=== PATIENT | male | born 1935 | race Caucasian/White ===

== ENCOUNTER 2018-04-16 21:22 | Inpatient (IN) | payer OTHER ==
[~2018-04-16] VITALS: Ht 175.3 cm; Wt 67.6 kg
--- NOTE | ~2018-04-16 | HC ---
[facility] [place] [address] CONSULTATION Name: JASON CASTILLO Room #: 419-P [facility] IN M.R.#: [id number] Admission: 04/17/18 Attend Phys: Roselia Ortiz MD Discharge: Date of : 39 Report #: [id number] THIS REPORT FOR: //name// CC: Roselia Ortiz Sagar Gage DATE OF SERVICE: 04/18/2018 ATTENDING PHYSICIAN: Jostin Hayward MD. CONSULTATION REQUESTED BY: Mykel Dominique MD. REASON FOR CONSULTATION: Fever. HISTORY OF PRESENT ILLNESS: The patient is an 82-year-old white man who reports he was brought to the Emergency Room with history of fever as high as 104 and some burning in the chest and the fever appears to have getting better now, but he is still having some burning sensation on upper airways. He relates having had some shortness of breath as well, particularly worse with physical activity. The patient's workup has included CT scan of the chest that revealed some chronic changes, but no acute infiltrates. All in all, the patient appears to have improved some wondering he needs to stay here in the hospital. PAST MEDICAL HISTORY: Cataract surgeries, both eyes. Coronary artery bypass grafting in 1979 at [facility]. Cigarette smoking and COPD. SOCIAL HISTORY: Retired service architect. . Living with in his home. Two sons and 2 grandchildren. No longer smokes cigarettes. DRUG ALLERGIES: MORPHINE, HYDROCODONE. MEDICATIONS: The patient is on vancomycin 500 mg daily, levofloxacin 750 mg IV every 48 hours, loratadine 10 mg daily, cyanocobalamin 1000 mcg p.o. daily, pantoprazole 40 mg daily, niacin sustained release 500 mg p.o. daily, folic acid 800 mcg daily, fluticasone propionate 1 spray each nostril daily, duloxetine 60 mg daily, aspirin 81 mg daily, acidophilus and bulgaricus 1 package daily, atorvastatin 40 mg daily, quetiapine fumarate 25 mg at bedtime, alprazolam 1 mg at bedtime, enoxaparin 40 mg subQ at bedtime, metoprolol 25 mg p.o. b.i.d., albuterol inhalation treatments 3 times daily, p.r.n. acetaminophen, guaifenesin, vancomycin 500 IV every 12 hours. REVIEW OF SYSTEMS: As above. PHYSICAL EXAMINATION: GENERAL: This is a well-developed man. VITAL SIGNS: Temperature 100.3 at 22:50 on 04/16/2018, [place] [address] CONSULTATION Name: JASON CASTILLO Room #: 419-P [facility] IN M.R.#: [id number] Admission: 04/17/18 Attend Phys: Roselia Ortiz MD Discharge: Date of : 39 Report #: [id number] Temperature today is 97.5, pulse 79, respirations 20, BP 183/67. HEENMT: Head normocephalic, atraumatic. Status post bilateral cataract surgery, lens implants. Pupils reactive. Mouth: Dry mucous membrane. NECK: Supple. No thyromegaly or lymphadenopathy are negative. LUNGS: Crackles right lung base posteriorly. HEART: S1, S2. No gallop or murmur. ABDOMEN: Soft, no masses or megaly. GENITALIA AND RECTAL: Deferred. EXTREMITIES: No clubbing, cyanosis. NEUROLOGIC: Grossly within normal limits. LABORATORY DATA: On admission, BUN 22, creatinine 1.5 and glucose 162. Repeat blood test today revealed a BUN down to 15, creatinine 1.4, albumin decreased 2.9 g/dL on admission, white blood cell count 15,400, repeated today is 8800, hemoglobin 11.2 g/dL, platelets 212,000. The white blood cell count differential on the date of admission 91% neutrophils. Cultures negative so far. RADIOLOGY EVALUATION: CT scan of the chest has revealed chronic lung changes, no acute process, coronary artery calcifications. Previous sternotomy. ASSESSMENT: 1. Febrile illness with respiratory symptoms, entertain possibility of right lower lobe pneumonia. 2. Possible viral infection. 3. Azotemia - dehydration, resolved. 4. Chronic obstructive pulmonary disease. 5. Mild anemia. 6. MORPHINE, HYDROCODONE ALLERGY INTOLERANCE. SUGGESTIONS AND RECOMMENDATIONS: The patient appears to have clinically improved. We will continue current regimen of Levaquin 750 mg IV, we will make changes to daily. We will discontinue IV vancomycin. We will repeat chest x-ray, order a CRP and ESR. The patient, I suppose, could be considered for discharge in [address] Dominique, thank you for requesting my suggestions. <ELECTRONICALLY SIGNED> By: Nicola Connelly MD 04/19/18 [id number] Nicola Connelly MD /nt
[2018-04-16 21:39] VITALS: BP 130/52
[2018-04-16 22:02] LABS: BASOPHILS 0.4 % (0.0-2.0); EOSINOPHILS 0.4 % (0.0-3.0); HEMATOCRIT 33.4 % (42.0-52.0); HEMOGLOBIN 11.4 gm/dL (14.0-18.0); LYMPHOCYTES 3.2 % (24.0-44.0); MCH 31.8 pg (26.0-34.0); MCV 93.7 fL (80.0-100.0); MONOCYTES 4.5 % (1.0-8.0); PLATELET COUNT 251 thou/uL (150-400); POLYS 91.5 % (36.0-66.0); RBC 3.57 mil/uL (4.50-6.00); RDW 13.5 % (10.5-14.5); WBC 15.4 thou/uL (4.0-11.0)
[2018-04-16 22:10] LABS: CALCIUM 8.7 mg/dL (8.5-10.1); CREATININE 1.5 mg/dL (0.7-1.3); POTASSIUM 3.9 mmol/L (3.5-5.1)
[2018-04-16 23:00] LABS: URINE BILIRUBIN NEGATIVE (Negative); URINE BLOOD NEGATIVE (Negative); URINE CLARITY CLEAR; URINE COLOR YELLOW; URINE GLUCOSE-RANDOM* NEGATIVE (Negative); URINE KETONES NEGATIVE (Negative); URINE LEUKOCYTES-REFLEX NEGATIVE (Negative); URINE NITRITE-REFLEX NEGATIVE (Negative); URINE PROTEIN (DIPSTICK) TRACE (Negative); URINE UROBILINOGEN 0.2 E.U./dl (0.2-1.0)
[2018-04-17 01:55] VITALS: BP 146/44
[2018-04-17 02:24] VITALS: BP 142/47
[2018-04-17 05:57] LABS: HEMATOCRIT 34.7 % (42.0-52.0); HEMOGLOBIN 11.6 gm/dL (14.0-18.0); MCH 31.8 pg (26.0-34.0); MCHC 33.6 g/dL (28.0-37.0); MCV 94.7 fL (80.0-100.0); RBC 3.66 mil/uL (4.50-6.00); RDW 13.9 % (10.5-14.5); WBC 14.1 thou/uL (4.0-11.0)
[2018-04-17 06:06] LABS: CALCIUM 8.6 mg/dL (8.5-10.1); CREATININE 1.4 mg/dL (0.7-1.3); POTASSIUM 4.1 mmol/L (3.5-5.1)
[2018-04-17 08:33] VITALS: BP 120/72
[2018-04-17] MEDS ORDERED: BACID CAPLET1 EACH (12:50)
[2018-04-17] MEDS ORDERED: XANAX1 MG PO (12:51)
[2018-04-17] MEDS ORDERED: NORVASC5 MG PO (12:52)
[2018-04-17] MEDS ORDERED: CYMBALTA60 MG PO (12:53)
[2018-04-17] MEDS ORDERED: ASPIR 8181 MG PO (12:53)
[2018-04-17] MEDS ORDERED: ALLER-EASE180 MG PO (12:54)
[2018-04-17] MEDS ORDERED: FLONASE 0.05%50 MCG NASAL (12:56)
[2018-04-17] MEDS ORDERED: FOLIC ACID1 MG (12:57)
[2018-04-17] MEDS ORDERED: LOPRESSOR25 PO (12:59)
[2018-04-17] MEDS ORDERED: NIACIN 500 MG500 M1 PO (12:59)
[2018-04-17] MEDS ORDERED: OMEPRAZOLE20 MG PO (13:00)
[2018-04-17] MEDS ORDERED: SEROQUEL 25 MG25 M1 (13:01)
[2018-04-17] MEDS ORDERED: CRESTOR20 MG PO (13:02)
[2018-04-17] MEDS ORDERED: SPIRIVA INH (13:03)
[2018-04-17] MEDS ORDERED: VITAMIN B-12500 MCG PO (13:04)
[2018-04-17] MEDS ORDERED: MAPAP500 MG PO (13:06)
[2018-04-17] MEDS ORDERED: VENTOLIN HFA INH8 GM (13:11)
[2018-04-17 17:23] VITALS: BP 158/95
[2018-04-17 20:00] VITALS: BP 160/56
[2018-04-18 02:10] VITALS: BP 155/55
[2018-04-18 05:08] VITALS: BP 183/67
[2018-04-18 05:14] LABS: HEMATOCRIT 33.9 % (42.0-52.0); HEMOGLOBIN 11.2 gm/dL (14.0-18.0); MCH 31.6 pg (26.0-34.0); MCV 95.7 fL (80.0-100.0); RBC 3.54 mil/uL (4.50-6.00); RDW 13.9 % (10.5-14.5); WBC 8.8 thou/uL (4.0-11.0)
[2018-04-18 05:27] LABS: ALBUMIN 2.9 g/dL (3.4-5.0); CALCIUM 8.6 mg/dL (8.5-10.1); CREATININE 1.4 mg/dL (0.7-1.3); POTASSIUM 4.2 mmol/L (3.5-5.1); TOTAL BILIRUBIN 0.4 mg/dL (<0.1-1.0); TOTAL PROTEIN 6.5 g/dL (6.4-8.2)
[2018-04-18 19:39] VITALS: BP 122/76
[2018-04-19 02:01] LABS: ABSOLUTE NEUTROPHILS 8.2 thou/uL (1.4-8.2); BASOPHILS 0.3 % (0.0-2.0); EOSINOPHILS 3.7 % (0.0-3.0); HEMATOCRIT 31.8 % (42.0-52.0); HEMOGLOBIN 10.8 gm/dL (14.0-18.0); LYMPHOCYTES 10.9 % (24.0-44.0); MCH 32.3 pg (26.0-34.0); MCV 95.1 fL (80.0-100.0); MONOCYTES 9.7 % (1.0-8.0); PLATELET COUNT 205 thou/uL (150-400); POLYS 75.4 % (36.0-66.0); RBC 3.34 mil/uL (4.50-6.00); WBC 10.9 thou/uL (4.0-11.0)
[2018-04-19 02:09] LABS: CALCIUM 8.1 mg/dL (8.5-10.1); CREATININE 1.3 mg/dL (0.7-1.3); POTASSIUM 3.6 mmol/L (3.5-5.1)
[2018-04-19 04:03] VITALS: BP 162/61
[2018-04-19 05:12] LABS: HEMATOCRIT 30.8 % (42.0-52.0); HEMOGLOBIN 10.5 gm/dL (14.0-18.0); MCH 32.2 pg (26.0-34.0); MCHC 34.1 g/dL (28.0-37.0); MCV 94.4 fL (80.0-100.0); PLATELET COUNT 191 thou/uL (150-400); RBC 3.26 mil/uL (4.50-6.00); RDW 13.7 % (10.5-14.5); WBC 9.7 thou/uL (4.0-11.0)
[2018-04-19 07:42] LABS: ABSOLUTE NEUTROPHILS 7.3 thou/uL (1.4-8.2); ANISOCYTOSIS SLIGHT
[2018-04-19 08:33] VITALS: BP 174/59
[2018-04-19] MEDS ORDERED: LEVAQUIN 750 M750 MG PO (16:41)
[2018-04-19 16:48] VITALS: BP 174/59
== END 2018-04-19 17:22 | disposition home health service (06) | DRG 871 ==
LOC: ER 21:22 → EROBS 04-17 00:13 → 4E 04-17 00:13 → ENTRNSPT 04-19 17:14 → 4E 04-19 17:22
PROVIDERS: Emergency Medicine; Hospitalist; Nurse Practitioner Family
DX: A41.9 Sepsis, unspecified organism (principal); J18.9 Pneumonia, unspecified organism; J96.01 Acute respiratory failure with hypoxia; N17.9 Acute kidney failure, unspecified; E66.2 Morbid (severe) obesity with alveolar hypoventilation; Y95 Nosocomial condition; J44.9 Chronic obstructive pulmonary disease, unspecified; E86.0 Dehydration; D64.9 Anemia, unspecified; F03.90 Unspecified dementia, unspecified severity, without behavioral disturbance, psychotic disturbance, mood disturbance, and anxiety; R13.10 Dysphagia, unspecified; D72.829 Elevated white blood cell count, unspecified; Z79.899 Other long term (current) drug therapy; Z79.82 Long term (current) use of aspirin; Z88.8 Allergy status to other drugs, medicaments and biological substances; Z88.6 Allergy status to analgesic agent; Z95.1 Presence of aortocoronary bypass graft; Z68.22 Body mass index [BMI] 22.0-22.9, adult; Z90.49 Acquired absence of other specified parts of digestive tract
CPT/HCPCS: 10183

== ENCOUNTER 2019-08-23 12:21 | Emergency (ER) | payer OTHER ==
[~2019-08-23] VITALS: Ht 175.3 cm; Wt 70.3 kg
[~2019-08-23 12:21] MED LIST: ALLER-EASE180 MG PO; ASPIR 8181 MG PO; BACID CAPLET1 EACH; CRESTOR20 MG PO; CYMBALTA60 MG PO; FLONASE 0.05%50 MCG NASAL; FOLIC ACID1 MG; LEVAQUIN 750 M750 MG PO; LOPRESSOR25 PO; MAPAP500 MG PO; NIACIN 500 MG500 M1 PO; NORVASC5 MG PO; OMEPRAZOLE20 MG PO; SEROQUEL 25 MG25 M1; SPIRIVA INH; VENTOLIN HFA INH8 GM; VITAMIN B-12500 MCG PO; XANAX1 MG PO
[2019-08-23 14:27] VITALS: BP 148/49
== END 2019-08-23 14:27 | disposition home or self-care (01) ==
LOC: ER 12:21
DX: S51.811A Laceration without foreign body of right forearm, initial encounter (principal); S09.8XXA Other specified injuries of head, initial encounter; M25.511 Pain in right shoulder; M54.2 Cervicalgia; F03.90 Unspecified dementia, unspecified severity, without behavioral disturbance, psychotic disturbance, mood disturbance, and anxiety; Z90.49 Acquired absence of other specified parts of digestive tract; Z88.5 Allergy status to narcotic agent; W18.39XA Other fall on same level, initial encounter; Y93.01 Activity, walking, marching and hiking; Y92.89 Other specified places as the place of occurrence of the external cause; Y99.8 Other external cause status